=== PATIENT | female | born 1990 | race Caucasian/White ===

== ENCOUNTER 2017-07-11 14:59 | Emergency (ER) | payer OTHER ==
[2017-07-11 15:36] VITALS: BP 102/67
--- NOTE | 2017-07-11 15:50 | UC ---
UC General HPI - HPI Summary HPI Summary: pt had a D&C at the end of April. she states they perforated her uterus and told her it would heal. she did get better; however, over the past week she has been having increasing L lower abdominal pain. she states she did have a fever at the onset. she denies v,d,dysuria but has a loss of appetite. she denies risk /concern for std and was tested in april by the hospital then by [facility] [employer] and upon admission to [facility] - History of Current Complaint Chief Complaint: UCAbdominalPain Stated Complaint: ABD PAIN Time Seen by Provider: 07/11/17 15:41 Hx Obtained From: Patient Hx Last Menstrual Period: DOES NOT HAVE REG PERIODS, HAS THE IMPLAMON INPLANT Onset/Duration: Gradual Onset Timing: Constant Pain Intensity: 5 Associated Signs & Symptoms: Positive: Abdominal Pain, Fever - Allergy/Home Medications Allergies/Adverse Reactions: Allergies Allergy/AdvReac Type Severity Reaction Status Date / Time No Known Allergies Allergy Verified 07/11/17 15:20 Home Medications: Home Medications Acetaminophen [Tylenol Extra Strength] 1,000 mg PO Q6H PRN 07/11/17 [History Confirmed 07/11/17] Albuterol HFA INHALER* [Ventolin HFA Inhaler*] 2 puff INH Q6H PRN 07/11/17 [ History Confirmed 07/11/17] Aspirin/Acetaminophen/Caffeine [Excedrin Migraine Caplet] 1 each PO 07/11/17 [ History] Budesonide/Formote 160/4.5(NF) [Symbicort 160/4.5 (NF)] 2 puff INH BID 07/11/17 [History Confirmed 07/11/17] Calcium Carbonate CHEW TAB* [Tums*] 1,000 mg PO BID PRN 07/11/17 [History Confirmed 07/11/17] Dicyclomine CAP* [Bentyl CAP*] 10 mg PO AC PRN 07/11/17 [History Confirmed 07/11] Docusate CAP* [Colace Cap*] 100 mg PO BID 07/11/17 [History Confirmed 07/11/17] FLUoxetine CAP* [PROzac CAP*] 40 mg PO DAILY 07/11/17 [History Confirmed ] Folic Acid TAB* [Folvite TAB*] 1 mg PO DAILY 07/11/17 [History Confirmed ] Hemorrhoidal SUPP* [Preparation H Supp*] 1 supp [place] Q12H PRN 07/11/17 [History Confirmed 07/11/17] Ibuprofen TAB* [Motrin TAB* 600 MG] 600 mg PO Q6H PRN 07/11/17 [History Confirmed 07/11/17] LORazepam INJ* [Ativan INJ 2 MG/ML*] 0.5 mg IV Q4H 07/11/17 [History Confirmed 07/11/17] Lidocaine PATCH 5%* [Lidoderm 5% Patch*] 1 patch TRANSDERM DAILY 07/11/17 [ History Confirmed 07/11/17] [place] Carbonate CAP 300 mg PO BID 07/11/17 [History Confirmed 07/11/17] Loperamide CAP* [Imodium CAP*] 2 mg PO Q4H PRN 07/11/17 [History Confirmed 07/11] Magnesium Hydroxide LIQ* [Milk of [place] LIQ*] 30 ml PO BEDTIME 07/11/17 [ History Confirmed 07/11/17] Melatonin/Pyridoxine HCl (B6) [Melatonin 3 mg Tablet] 1 each PO 07/11/17 [ History] Multivitamin [Multivitamins] 1 cap PO 07/11/17 [History] Naltrexone TAB* 50 mg PO 07/11/17 [History] Nicotine Lozenge* 07/11/17 [History] Nicotine PATCH 14 MG/24 HR* 14 mg TRANSDERM DAILY 07/11/17 [History Confirmed ] Omeprazole CAP* [Prilosec CAP* 20 MG] 20 mg PO BID 07/11/17 [History Confirmed 07/11/17] Ondansetron ODT TAB* [Zofran 4 MG Odt TAB*] 8 mg PO Q6H PRN 07/11/17 [History Confirmed 07/11/17] Simethicone TAB* [Mylicon TAB*] 80 mg PO ACHS PRN 07/11/17 [History Confirmed ] Thiamine TAB* [Vitamin B-1 TAB*] 100 mg PO DAILY 07/11/17 [History Confirmed ] Vitamin B 12 1,000 mcg PO DAILY 07/11/17 [History] cloNIDine HCl [Catapres 0.1 MG TAB] 0.1 mg PO TID PRN 07/11/17 [History Confirmed 07/11/17] hydrOXYzine pamoate [Vistaril] 50 mg PO 07/11/17 [History] lamoTRIgine TAB(*) [LaMICtal TAB(*)] 25 mg PO BEDTIME 07/11/17 [History Confirmed 07/11/17] tiaGABine TAB(*) [Gabitril*] 2 mg PO DAILY 07/11/17 [History Confirmed 07/11/17] traZODone TAB* [Desyrel TAB*] 100 mg PO BEDTIME PRN 07/11/17 [History Confirmed 07/11/17] PMH/Surg Hx/FS Hx/Imm Hx - Additional Past Medical History Additional PMH: opiate use, sarcoidosis, migraines, eczema, asthma, ptx, anxiety/panic, bipolar - Surgical History Surgical History: Yes Surgery Procedure, Year, and Place: D&C. TUBES - EARS. ADNOIDECTOMY - Family History Known Family History: Positive: None - Social History Occupation: Unemployed Lives: Snf - [facility] [employer]DI[employer]/RECOVERY Alcohol Use: None Substance Use Type: None Substance Use Comment - Amount & Last Used: OPIATES, IN RECOVERY Smoking Status (MU): Former Smoker Type: Cigarettes When Did the Patient Quit Smoking/Using Tobacco: JUN 23 2017 - Immunization History Vaccination Up to Date: Yes Review of Systems Constitutional: Negative Skin: Negative Eyes: Negative ENT: Negative Respiratory: Negative Cardiovascular: Negative Gastrointestinal: Abdominal Pain, Nausea Genitourinary: Negative Motor: Negative Neurovascular: Negative Musculoskeletal: Negative Neurological: Negative Psychological: Negative Is Patient Immunocompromised?: No All Other Systems Reviewed And Are Negative: Yes Physical Exam Triage Information Reviewed: Yes Appearance: Well-Appearing Vital Signs: Initial Vital Signs Temp 98.3 F 07/11/17 15:22 Pulse 58 07/11/17 15:22 Resp 16 07/11/17 15:22 BP 102/67 07/11/17 15:22 Pulse Ox 99 07/11/17 15:22 Eyes: Positive: Conjunctiva Clear ENT: Positive: Normal ENT inspection Neck: Positive: Supple, Nontender, No Lymphadenopathy Respiratory: Positive: Lungs clear, Normal breath sounds Cardiovascular: Positive: RRR, No Murmur Abdomen Description: Positive: Other: - Soft. Tender LLQ. No mass, HSM or CVA tenderness. Bowel Sounds: Positive: Present Pelvic Exam: Positive: Other - Defer to ER Musculoskeletal: Positive: ROM Intact Neurological: Positive: Alert Psychological: Positive: Age Appropriate Behavior Skin Exam: Normal Diagnostics - Laboratory Diagnostic Studies Completed/Ordered: HCG=neg. U/A 1+ leukocytes. Urine culture is pending. Course/Dx - Course Course Of Treatment: hcg=neg. u/a=1+ leuks but no urinary s/s's but culture is pending. ovarian cyst possible. given hx uterine perforation, need to exclude abscess. doubt std, pt had had mutile recent testing with neg results. pt declined EMS, Dori bus driver/monitor will take her to the ER. Dori notified of Transfer. report given to [facility] ER. I spoke to Natalie Page NP. advised of PMH, abdominal pain, neg hcg and possible abscess in her differential. - Differential Dx - Multi-Symptom Provider Diagnoses: L lower abdominal pain Discharge - Sign-Out/Discharge Documenting (check all that apply): Discharge/Admit/Transfer - Discharge Plan Condition: Stable Disposition: TRANS HIGHER LVL OF CARE FAC Referrals: No Primary Care Phys,NOPCP [Primary Care Provider] - Additional Instructions: LEAVE HERE AND GO DIRECTLY TO THE [facility] ER FOR ADDITIONAL EVALUATION OF YOUR ABDOMINAL PAIN - Billing Disposition and Condition Condition: STABLE Disposition: EMTALA
== END 2017-07-11 16:19 | disposition short-term general hospital (02) ==
LOC: UCCORT 14:59
DX: R10.32 Left lower quadrant pain (principal); F11.10 Opioid abuse, uncomplicated; D86.9 Sarcoidosis, unspecified; G43.909 Migraine, unspecified, not intractable, without status migrainosus; J45.909 Unspecified asthma, uncomplicated; F41.0 Panic disorder [episodic paroxysmal anxiety]; F31.9 Bipolar disorder, unspecified; L30.9 Dermatitis, unspecified
CPT/HCPCS: 81003; 84702; 87086; 99202; G0463